=== PATIENT | female | born 1985 | race Caucasian/White ===

== ENCOUNTER 2017-08-10 23:40 | Emergency (ER) | payer MEDICAID ==
[~2017-08-10] VITALS: Ht 152.4 cm; Wt 79.0 kg
[2017-08-10 23:51] VITALS: Ht 152.4 cm; Wt 79.0 kg
[2017-08-11] MEDS ORDERED: ACETAMINOPHEN 325 MG TAB PO STA (00:28)
[2017-08-11] MEDS ORDERED: SOD CHLORIDE 0.9% 1,000 ML IV ONE (00:30)
[2017-08-11 00:59] LABS: BASOPHIL # 0.1 10^3/ul (0.0-0.1); BASOPHILS % 0.4 % (0.0-2.0); EOSINOPHILS # 0.1 10^3/ul (0.0-0.5); EOSINOPHILS % 0.4 % (0.0-7.0); HEMATOCRIT 39.7 % (37.0-47.0); LYMPHOCYTES # 2.8 10^3/ul (0.8-2.9); LYMPHOCYTES % 19.9 % (15.0-51.0); MEAN CORPUSCULAR HEMOGLOBIN 28.5 pg (29.0-33.0); MEAN CORPUSCULAR HGB CONC 32.7 g/dl (32.0-37.0); MEAN CORPUSCULAR VOLUME 87.1 fl (82.0-101.0); MEAN PLATELET VOLUME 8.5 fl (7.4-10.4); MONOCYTE # 0.9 10^3/ul (0.3-0.9); MONOCYTES % 6.5 % (0.0-11.0); NEUTROPHIL # 10.2 10^3/ul (1.6-7.5); NEUTROPHILS % 72.1 % (39.0-77.0); PLATELET COUNT 329 10^3/UL (140-415); RED BLOOD COUNT 4.56 10^6/ul (4.20-5.40); RED CELL DISTRIBUTION WIDTH 16.3 % (11.5-14.5); WHITE BLOOD COUNT 14.1 10^3/ul (4.8-10.8)
[2017-08-11 01:05] LABS: ADD UMIC YES; UR ASCORBIC ACID NEGATIVE (NEGATIVE); UR BACTERIA FEW /HPF (NONE SEEN); UR BILIRUBIN (Dip) NEGATIVE (NEGATIVE); UR BLOOD (Dip) 2+ mg/dL (NEGATIVE); UR CLARITY CLEAR (CLEAR); UR COLOR STRAW (YELLOW); UR GLUCOSE (Dip) NEGATIVE (NEGATIVE); UR KETONES (Dip) NEGATIVE (NEGATIVE); UR LEUKOCYTE ESTERASE (Dip) 2+ Leu/ul (NEGATIVE); UR NITRITE (Dip) NEGATIVE (NEGATIVE); UR RBC 1 /HPF (0-5); UR SPECIFIC GRAVITY (Dip) 1.003 (1.003-1.030); UR TOTAL PROTEIN (Dip) NEGATIVE (NEGATIVE); UR UROBILINOGEN (Dip) NEGATIVE (NEGATIVE)
--- NOTE | 2017-08-11 01:20 | ERD ---
ER Documentation Chief Complaint Date/Time DATE: 08/11/17 TIME: 01:15 Chief Complaint painful/burning urination x 3 weeks, c/o low abd/back pain HPI This is a 32-year-old female presenting to emergency department for dysuria, frequent urination and right-sided flank pain 3 days. Patient states she has painful and burning urination for the past 3 days with right-sided flank pain. No difficulty urinating. No vaginal discharge or bleeding. Patient had a normal vaginal delivery on July 21, 2017 without complications. Patient is currently breast-feeding. No nausea or vomiting. No diarrhea or constipation. No headache. No past medical or surgical history. Patient is not taking any medications. ROS All systems reviewed and are negative except as per history of present illness. Medications Home Meds Active Scripts Phenazopyridine Hcl* (Pyridium*) 100 Mg Tab, 100 MG PO TID Y for URINARY PAIN, # 8 TAB Prov:ANDREY JOHNSON NP 08/11/17 Ibuprofen* (Motrin*) 600 Mg Tab, 600 MG PO Q6, #30 TAB Prov:ANDREY JOHNSON NP 08/11/17 Ciprofloxacin Hcl* (Ciprofloxacin Hcl*) 500 Mg Tablet, 500 MG PO BID for 10 Days , TAB Prov:ANDREY JOHNSON NP 08/11/17 Allergies Allergies: Coded Allergies: No Known Drug Allergies (Verified Allergy, Unknown, 08/10/17) PMhx/Soc Medical and Surgical Hx: pt denies Medical Hx, pt denies Surgical Hx Hx Alcohol Use: No Hx Substance Use: No Hx Tobacco Use: No Smoking Status: Never smoker Physical Exam Vitals Vital Signs Date Time Temp Pulse Resp B/P Pulse Ox O2 Delivery O2 Flow Rate FiO2 08/10/17 23:51 100.8 113 20 116/68 98 Physical Exam Const: Alert, no acute distress Head: Atraumatic Eyes: Normal Conjunctiva ENT: Normal External Ears, Nose and Mouth. Neck: Full range of motion..~ No meningismus. Resp: Clear to auscultation bilaterally Cardio: Regular rate and rhythm, no murmurs Abd: Soft, non tender, non distended. Normal bowel sounds Skin: No petechiae or rashes Back: No midline or CVA tenderness to right side. Ext: No cyanosis, or edema Neur: Awake and alert Psych: Normal Mood and Affect Result Diagram: 08/11/17 0046 08/11/17 0046 Results 24 hrs Laboratory Tests Test 08/11/17 00:46 White Blood Count 14.110^3/ul Red Blood Count 4.5610^6/ul Hemoglobin 13.0g/dl Hematocrit 39.7% Mean Corpuscular Volume 87.1fl Mean Corpuscular Hemoglobin 28.5pg Mean Corpuscular Hemoglobin Concent 32.7g/dl Red Cell Distribution Width 16.3% Platelet Count 03996^3/UL Mean Platelet Volume 8.5fl Neutrophils % 72.1% Lymphocytes % 19.9% Monocytes % 6.5% Eosinophils % 0.4% Basophils % 0.4% Nucleated Red Blood Cells % 0.0/100WBC Neutrophils # 10.210^3/ul Lymphocytes # 2.810^3/ul Monocytes # 0.910^3/ul Eosinophils # 0.110^3/ul Basophils # 0.110^3/ul Nucleated Red Blood Cells # 0.010^3/ul Urine Color STRAW Urine Clarity CLEAR Urine pH 6.0 Urine Specific [place] 1.003 Urine Ketones NEGATIVEmg/dL Urine Nitrite NEGATIVEmg/dL Urine Bilirubin NEGATIVEmg/dL Urine Urobilinogen NEGATIVEmg/dL Urine Leukocyte Esterase 2+Mary/ul Urine Microscopic RBC 1/HPF Urine Microscopic WBC 24/HPF Urine Bacteria FEW/HPF Urine Hemoglobin 2+mg/dL Urine Glucose NEGATIVEmg/dL Urine Total Protein NEGATIVEmg/dl Sodium Level 139mmol/L Potassium Level 3.7mmol/L Chloride Level 105mmol/L Carbon Dioxide Level 25mmol/L Anion Gap 13 Blood Urea Nitrogen 12mg/dl Creatinine 0.82mg/dl Glucose Level 111mg/dl Lactic Acid Level 0.9mmol/L Calcium Level 9.3mg/dl Total Bilirubin 0.7mg/dl Direct Bilirubin 0.00mg/dl Indirect Bilirubin 0.7mg/dl Aspartate Amino Transf (AST/SGOT) 29IU/L Alanine Aminotransferase (ALT/SGPT) 54IU/L Alkaline Phosphatase 139IU/L Total Protein 8.5g/dl Albumin 4.1g/dl Globulin 4.40g/dl Albumin/Globulin Ratio 0.93 Current Medications Medications (Trade) Dose Ordered Sig/Richa Route PRN Reason Start Time Stop Time Status Last Admin Dose Admin Acetaminophen 650 mg 650 mg ONCE STAT PO 08/11/17 00:28 08/11/17 00:31 DC 08/11/17 00:50 Sodium Chloride 1,000 ml @ 1,000 mls/hr Q1H ONCE IV 08/11/17 00:30 08/11/17 01:29 DC 08/11/17 00:50 Ceftriaxone Sodium (Rocephin) 50 ml @ 100 mls/hr ONCE ONCE IVPB 08/11/17 01:30 08/11/17 01:59 Procedures/MDM MDM: This is a 32-year-old female presenting to emergency department with dysuria, frequent urination and right-sided flank pain 3 days. Patient has temp of 100.8F and heart rate 113 bpm upon arrival to ED. Based on vital signs , patient meets SIRS criteria and therefore lab work ordered. CBC shows elevated white blood cell count of 14.1. CMP shows no significant electrolyte imbalance. Normal liver enzymes. Normal glucose. Normal bilirubin. Lactic acid is . UA shows 2+ leukocyte esterase 2+ hemoglobin and 24 WBCs. IV access obtained and patient given 1 L IV fluid bolus of normal saline and patient also given 1 g Rocephin IV. Vital signs stable upon recheck. Discussed findings with Dr. Solis who agrees with my plan of care. Differential diagnosis includes but not limited to UTI, pyelonephritis, nephrolithiasis and septic stone. Patient is appropriate for outpatient management and will be given prescription for Cipro, ibuprofen and Pyridium. Instructed patient to return in 8 hours for check of symptoms. Instructed patient to follow-up with primary care provider in the next 2-3 days for reassessment and additional management. Return to ED for any high fever, chest pain, difficulty breathing, shortness breath, wheezing , vomiting, diarrhea, abdominal pain or any new or worsening symptoms. Patient verbalizes understanding. All questions answered at discharge. Chinese translation used during this encounter. Patient discharged in compliance with the [facility] treat and release policy. Disclaimer: Inadvertent spelling and grammatical errors are likely due to EHR/ dictation software use and do not reflect on the overall quality of patient care. Also, please note that the electronic time recorded on this note does not necessarily reflect the actual time of the patient encounter. Departure Diagnosis: Primary Impression: Pyelonephritis Condition: Stable ANDREY JOHNSON NP Aug 11, 2017 01:19
[2017-08-11 01:23] LABS: ALBUMIN/GLOBULIN RATIO 0.93; POTASSIUM 3.7 mmol/L (3.5-5.1)
[2017-08-11 01:24] LABS: CALCIUM 9.3 mg/dl (8.4-10.2); CREATININE 0.82 mg/dl (0.44-1.00)
[2017-08-11 01:28] LABS: ALBUMIN 4.1 g/dl (3.3-4.9); BILIRUBIN,INDIRECT 0.7 mg/dl (0-1.1); BILIRUBIN,TOTAL 0.7 mg/dl (0.2-1.3); TOTAL PROTEIN 8.5 g/dl (6.1-8.1)
[2017-08-11] MEDS ORDERED: CEFTRIAXONE 1 GM/50 ML (PMX) 50 ML IVPB ONE (01:30)
[2017-08-11] MEDS ORDERED: PHEN-537 PO (01:35)
[2017-08-11] MEDS ORDERED: CIPR500T4 PO (01:35)
[2017-08-11] MEDS ORDERED: IBUP-1542 PO (01:35)
[2017-08-11 02:07] VITALS: BP 121/68; PULSE 71; RESP 20; TEMP 98.7
[2017-08-11] MEDS ORDERED: CEPH-443 PO (02:18)
== END 2017-08-11 02:44 | disposition home or self-care (01) ==
LOC: FTE 23:40
DX: N12 Tubulo-interstitial nephritis, not specified as acute or chronic (principal)
CPT/HCPCS: 36415; 80053; 81001; 83605; 85025; 87086; 96374; J0696; J7030; Z7502; Z7610